=== PATIENT | male | born 1975 | race Caucasian/White ===

== ENCOUNTER 2018-02-17 07:08 | Inpatient (IN) | payer BC, OTHER ==
[2018-02-17] MEDS: morphine 2 MG INJ IV ×2 (08:48→12:42)
[2018-02-17] MEDS: ONDANSETRON 4 MG INJ IV ×2 (08:48→16:16)
[2018-02-17] MEDS: LABETALOL HCL 20MG INJ IV (09:03)
[2018-02-17] MEDS ORDERED: NACL 0.9% 3 ML SYG IV (09:30)
[2018-02-17] MEDS ORDERED: MAGNESIUM HYDROXIDE 30ML CUP PO (09:30)
[2018-02-17] MEDS ORDERED: DOCUSATE SODIUM 100 MG CAP PO (09:30)
[2018-02-17] MEDS ORDERED: ACETAMINOPHEN 325 MG TAB PO (09:30)
[2018-02-17] MEDS: SOD CHLORIDE 0.45% 1,000 ML IV ×2 (09:56→20:20)
[2018-02-17] MEDS ORDERED: GLUCOSE GEL 15 GRAM TUBE BUCCAL (10:00)
[2018-02-17] MEDS ORDERED: DEXTROSE 50% 50 ML SYRINGE IV ×2 (10:00)
[2018-02-17] MEDS ORDERED: GLUCOSE GEL 15 GRAM TUBE PO ×2 (10:00)
[2018-02-17] MEDS ORDERED: GLUCAGON 1 MG INJ IM (10:00)
[2018-02-17] MEDS: HYDROCODONE/APAP (5/325) TAB PO (10:07)
[2018-02-17] MEDS: BENAZEPRIL 40 MG TAB PO (12:03)
[2018-02-17] MEDS: INSULIN GLARGINE [LANTus] (100 UNITS/ML) SYG SC ×2 (12:05→14:42)
[2018-02-17] MEDS: INSULIN ASPART [NOVOLOG] 3 ML PEN SC ×5 (12:08→20:40)
[2018-02-17] MEDS: TRIMETHOBENZAMIDE 300 MG CAP PO (12:40)
[2018-02-17] MEDS: hydrALAzine 20 MG INJ IV (12:42)
[2018-02-17 12:55] LABS: ADD MAN DIFF? NO
[2018-02-17 12:57] LABS: WHITE BLOOD COUNT 12.4 10^3/ul (4.8-10.8)
[2018-02-17 12:57] LABS: BASOPHILS % 0.2 % (0.0-2.0); HEMOGLOBIN 13.5 g/dl (14.0-18.0); LYMPHOCYTES # 1.7 10^3/ul (0.8-2.9); LYMPHOCYTES % 13.3 % (15.0-51.0); MEAN CORPUSCULAR HEMOGLOBIN 31.2 pg (29.0-33.0); MEAN CORPUSCULAR HGB CONC 34.6 g/dl (32.0-37.0); MEAN CORPUSCULAR VOLUME 90.1 fl (82.0-101.0); MEAN PLATELET VOLUME 9.4 fl (7.4-10.4); MONOCYTE # 1.1 10^3/ul (0.3-0.9); MONOCYTES % 9.2 % (0.0-11.0); NEUTROPHIL # 9.5 10^3/ul (1.6-7.5); NEUTROPHILS % 76.9 % (39.0-77.0); NUCLEATED RED BLOOD CELLS% 0.2 /100WBC (0.0-0.0); PLATELET COUNT 285 10^3/UL (140-415); RED BLOOD COUNT 4.33 10^6/ul (4.70-6.10); RED CELL DISTRIBUTION WIDTH 12.5 % (11.5-14.5)
[2018-02-17 13:03] LABS: ALANINE AMINOTRANSFERASE 21 IU/L (13-69); ALBUMIN 3.8 g/dl (3.3-4.9); ALBUMIN/GLOBULIN RATIO 1.08; ALKALINE PHOSPHATASE 90 IU/L (42-121); ANION GAP 21 (8-16); ASPARTATE AMINO TRANSFERASE 33 IU/L (15-46); BILIRUBIN,INDIRECT 0.5 mg/dl (0-1.1); BILIRUBIN,TOTAL 0.5 mg/dl (0.2-1.3); BLOOD UREA NITROGEN 16 mg/dl (7-20); CALCIUM 8.6 mg/dl (8.4-10.2); CARBON DIOXIDE 21 mmol/L (21-31); CHLORIDE 105 mmol/L (97-110); CREATININE 0.62 mg/dl (0.61-1.24); GLUCOSE 267 mg/dl (70-220); POTASSIUM 3.8 mmol/L (3.5-5.1); SODIUM 143 mmol/L (135-144); TOTAL PROTEIN 7.3 g/dl (6.1-8.1)
[2018-02-17 13:07] LABS: ADD UMIC YES; UR ASCORBIC ACID NEGATIVE (NEGATIVE); UR BILIRUBIN (Dip) NEGATIVE (NEGATIVE); UR BLOOD (Dip) 1+ mg/dL (NEGATIVE); UR CLARITY CLEAR (CLEAR); UR COLOR STRAW (YELLOW); UR GLUCOSE (Dip) 3+ mg/dL (NEGATIVE); UR KETONES (Dip) 2+ mg/dL (NEGATIVE); UR LEUKOCYTE ESTERASE (Dip) NEGATIVE Leu/ul (NEGATIVE); UR NITRITE (Dip) NEGATIVE (NEGATIVE); UR RBC 0 /HPF (0-5); UR SPECIFIC GRAVITY (Dip) 1.027 (1.003-1.030); UR TOTAL PROTEIN (Dip) NEGATIVE (NEGATIVE); UR UROBILINOGEN (Dip) NEGATIVE (NEGATIVE); UR WBC 0 /HPF (0-5)
[2018-02-17] MEDS: CEFTRIAXONE 1 GM/50 ML (PMX) 50 ML IVPB (13:51)
[2018-02-17] MEDS: GABAPENTIN 300 MG CAP PO ×2 (13:51→20:20)
[2018-02-17] MEDS ORDERED: HYDROmorphONE 1 MG/ML SYG IV (15:00)
[2018-02-17] MEDS: HYDROmorphONE 0.5 MG/0.5 ML SYG IV ×2 (16:17→20:29)
[2018-02-17 16:41] LABS: HEMOGLOBIN A1C 12.8 % (0-5.9)
[2018-02-17] MEDS ORDERED: ZOLPIDEM 5 MG TAB PO (21:00)
[2018-02-18] MEDS: ACCU-CHEK XX (02:00)
[2018-02-18] MEDS: SOD CHLORIDE 0.45% 1,000 ML IV ×3 (05:55→23:57)
[2018-02-18] MEDS: HYDROmorphONE 0.5 MG/0.5 ML SYG IV ×5 (06:10→23:56)
[2018-02-18 07:03] LABS: ADD MAN DIFF? NO
[2018-02-18 07:08] LABS: BASOPHIL # 0.1 10^3/ul (0.0-0.1); BASOPHILS % 0.6 % (0.0-2.0); EOSINOPHILS # 0.1 10^3/ul (0.0-0.5); EOSINOPHILS % 0.5 % (0.0-7.0); HEMATOCRIT 36.4 % (42.0-52.0); HEMOGLOBIN 12.3 g/dl (14.0-18.0); LYMPHOCYTES # 3.2 10^3/ul (0.8-2.9); MEAN CORPUSCULAR HEMOGLOBIN 30.4 pg (29.0-33.0); MEAN CORPUSCULAR HGB CONC 33.8 g/dl (32.0-37.0); MEAN CORPUSCULAR VOLUME 90.1 fl (82.0-101.0); MEAN PLATELET VOLUME 9.3 fl (7.4-10.4); MONOCYTE # 1.1 10^3/ul (0.3-0.9); MONOCYTES % 11.2 % (0.0-11.0); NEUTROPHIL # 5.1 10^3/ul (1.6-7.5); NEUTROPHILS % 53.5 % (39.0-77.0); PLATELET COUNT 260 10^3/UL (140-415); RED BLOOD COUNT 4.04 10^6/ul (4.70-6.10); RED CELL DISTRIBUTION WIDTH 12.7 % (11.5-14.5)
[2018-02-18 07:08] LABS: WHITE BLOOD COUNT 9.5 10^3/ul (4.8-10.8)
[2018-02-18 07:43] LABS: ANION GAP 12 (8-16); BLOOD UREA NITROGEN 16 mg/dl (7-20); CALCIUM 8.2 mg/dl (8.4-10.2); CARBON DIOXIDE 26 mmol/L (21-31); CHLORIDE 101 mmol/L (97-110); CREATININE 0.62 mg/dl (0.61-1.24); GLUCOSE 235 mg/dl (70-220); MAGNESIUM 2.1 mg/dl (1.7-2.5); PHOSPHORUS 3.1 mg/dl (2.5-4.9); POTASSIUM 3.3 mmol/L (3.5-5.1); SODIUM 136 mmol/L (135-144)
[2018-02-18] MEDS: INSULIN ASPART [NOVOLOG] 3 ML PEN SC ×8 (07:59→21:00)
[2018-02-18] MEDS: GABAPENTIN 300 MG CAP PO ×3 (08:32→21:15)
[2018-02-18] MEDS: BENAZEPRIL 40 MG TAB PO (08:33)
[2018-02-18] MEDS: INSULIN GLARGINE [LANTus] (100 UNITS/ML) SYG SC (10:38)
[2018-02-18] MEDS: CEFTRIAXONE 1 GM/50 ML (PMX) 50 ML IVPB (12:47)
[2018-02-18] MEDS: POTASSIUM CHLORIDE (SR) 20 MEQ TAB PO (15:10)
[2018-02-18] MEDS: ONDANSETRON 4 MG INJ IV (15:14)
[2018-02-18] MEDS: METOCLOPRAMIDE 5 MG TAB PO (17:56)
[2018-02-18] MEDS: METOCLOPRAMIDE 10 MG INJ IV ×2 (19:53→23:56)
[2018-02-18] MEDS: INSULIN DETEMIR [LEVEMIR] (100 UNITS/ML) SYG SC (21:20)
[2018-02-19] MEDS: ACCU-CHEK XX (02:00)
[2018-02-19] MEDS: METOCLOPRAMIDE 10 MG INJ IV ×4 (04:09→23:06)
[2018-02-19] MEDS: HYDROmorphONE 0.5 MG/0.5 ML SYG IV ×4 (04:10→23:06)
[2018-02-19] MEDS: ONDANSETRON 4 MG INJ IV (05:54)
[2018-02-19 06:38] LABS: ADD MAN DIFF? NO
[2018-02-19 06:44] LABS: BASOPHILS % 0.3 % (0.0-2.0); EOSINOPHILS # 0.1 10^3/ul (0.0-0.5); EOSINOPHILS % 1.4 % (0.0-7.0); HEMATOCRIT 37.3 % (42.0-52.0); HEMOGLOBIN 12.4 g/dl (14.0-18.0); LYMPHOCYTES # 3.3 10^3/ul (0.8-2.9); LYMPHOCYTES % 37.9 % (15.0-51.0); MEAN CORPUSCULAR HEMOGLOBIN 30.5 pg (29.0-33.0); MEAN CORPUSCULAR HGB CONC 33.2 g/dl (32.0-37.0); MEAN CORPUSCULAR VOLUME 91.6 fl (82.0-101.0); MEAN PLATELET VOLUME 9.3 fl (7.4-10.4); MONOCYTE # 0.8 10^3/ul (0.3-0.9); MONOCYTES % 9.6 % (0.0-11.0); NEUTROPHIL # 4.4 10^3/ul (1.6-7.5); NEUTROPHILS % 50.6 % (39.0-77.0); PLATELET COUNT 274 10^3/UL (140-415); RED BLOOD COUNT 4.07 10^6/ul (4.70-6.10); RED CELL DISTRIBUTION WIDTH 12.2 % (11.5-14.5)
[2018-02-19 06:44] LABS: WHITE BLOOD COUNT 8.8 10^3/ul (4.8-10.8)
[2018-02-19 07:22] LABS: ANION GAP 10 (8-16); BLOOD UREA NITROGEN 17 mg/dl (7-20); CALCIUM 8.4 mg/dl (8.4-10.2); CARBON DIOXIDE 30 mmol/L (21-31); CHLORIDE 103 mmol/L (97-110); CREATININE 0.63 mg/dl (0.61-1.24); GLUCOSE 196 mg/dl (70-220); POTASSIUM 4.2 mmol/L (3.5-5.1); SODIUM 139 mmol/L (135-144)
[2018-02-19] MEDS: INSULIN ASPART [NOVOLOG] 3 ML PEN SC ×7 (08:00→20:41)
[2018-02-19] MEDS: GABAPENTIN 300 MG CAP PO ×3 (08:45→20:39)
[2018-02-19] MEDS: HYDROCODONE/APAP (5/325) TAB PO (08:45)
[2018-02-19] MEDS: BENAZEPRIL 40 MG TAB PO (08:45)
[2018-02-19] MEDS: METOCLOPRAMIDE 5 MG TAB PO (08:45)
[2018-02-19] MEDS: SOD CHLORIDE 0.45% 1,000 ML IV ×2 (12:16→22:59)
[2018-02-19] MEDS: INSULIN DETEMIR [LEVEMIR] (100 UNITS/ML) SYG SC (20:40)
[2018-02-20] MEDS: ACCU-CHEK XX (02:00)
[2018-02-20] MEDS: HYDROmorphONE 0.5 MG/0.5 ML SYG IV (05:49)
[2018-02-20] MEDS: METOCLOPRAMIDE 10 MG INJ IV ×2 (05:49→12:26)
[2018-02-20] MEDS: INSULIN ASPART [NOVOLOG] 3 ML PEN SC ×4 (08:00→12:26)
[2018-02-20] MEDS: GABAPENTIN 300 MG CAP PO ×2 (08:32→12:26)
[2018-02-20] MEDS: BENAZEPRIL 40 MG TAB PO (08:32)
[2018-02-20] MEDS: SOD CHLORIDE 0.45% 1,000 ML IV (08:35)
[2018-02-20] MEDS: HYDROCODONE/APAP (5/325) TAB PO (10:20)
== END 2018-02-20 16:02 | disposition home or self-care (01) | DRG 872 ==
LOC: MS3 07:08 → PP2 02-18 18:00 → 6WM 18:45 → PP2 02-19 12:00
PROVIDERS: Internal Medicine
DX: A41.9 Sepsis, unspecified organism (principal); N39.0 Urinary tract infection, site not specified; E11.42 Type 2 diabetes mellitus with diabetic polyneuropathy; N31.9 Neuromuscular dysfunction of bladder, unspecified; E11.43 Type 2 diabetes mellitus with diabetic autonomic (poly)neuropathy; K31.84 Gastroparesis; E11.65 Type 2 diabetes mellitus with hyperglycemia; I10 Essential (primary) hypertension; Z91.14 Patient's other noncompliance with medication regimen; Z87.891 Personal history of nicotine dependence; Z79.4 Long term (current) use of insulin
CPT/HCPCS: 76775; 80048; 80053; 81001; 82962; 83036; 83735; 84100; 85025

== ENCOUNTER 2018-07-11 18:52 | Inpatient (IN) | payer BC ==
[2018-07-11] MEDS: SOD CHLORIDE 0.9% 1,000 ML IV (23:15)
[2018-07-11] MEDS: ONDANSETRON 4 MG INJ IV (23:15)
[2018-07-11] MEDS: ACETAMINOPHEN 325 MG TAB PO (23:16)
[2018-07-11] MEDS: morphine 4 MG/ML VIAL IV (23:16)
[2018-07-11 23:31] LABS: ADD MAN DIFF? NO
[2018-07-11 23:33] LABS: BASOPHILS % 0.3 % (0.0-2.0); HEMATOCRIT 47.7 % (42.0-52.0); HEMOGLOBIN 16.7 g/dl (14.0-18.0); LYMPHOCYTES # 1.4 10^3/ul (0.8-2.9); LYMPHOCYTES % 14.9 % (15.0-51.0); MEAN CORPUSCULAR HEMOGLOBIN 30.8 pg (29.0-33.0); MEAN PLATELET VOLUME 9.1 fl (7.4-10.4); MONOCYTE # 0.9 10^3/ul (0.3-0.9); MONOCYTES % 8.8 % (0.0-11.0); NEUTROPHIL # 7.3 10^3/ul (1.6-7.5); NEUTROPHILS % 75.7 % (39.0-77.0); PLATELET COUNT 331 10^3/UL (140-415); RED BLOOD COUNT 5.42 10^6/ul (4.70-6.10); RED CELL DISTRIBUTION WIDTH 12.3 % (11.5-14.5)
[2018-07-11 23:33] LABS: WHITE BLOOD COUNT 9.7 10^3/ul (4.8-10.8)
[2018-07-11 23:36] LABS: ADD UMIC YES; UR ASCORBIC ACID NEGATIVE (NEGATIVE); UR BACTERIA FEW /HPF (NONE SEEN); UR BILIRUBIN (Dip) NEGATIVE (NEGATIVE); UR BLOOD (Dip) 1+ mg/dL (NEGATIVE); UR CLARITY CLEAR (CLEAR); UR COLOR YELLOW (YELLOW); UR GLUCOSE (Dip) 3+ mg/dL (NEGATIVE); UR KETONES (Dip) 2+ mg/dL (NEGATIVE); UR LEUKOCYTE ESTERASE (Dip) NEGATIVE Leu/ul (NEGATIVE); UR NITRITE (Dip) NEGATIVE (NEGATIVE); UR RBC 1 /HPF (0-5); UR SPECIFIC GRAVITY (Dip) 1.035 (1.003-1.030); UR TOTAL PROTEIN (Dip) NEGATIVE (NEGATIVE); UR UROBILINOGEN (Dip) NEGATIVE (NEGATIVE); UR WBC 0 /HPF (0-5)
[2018-07-11 23:47] LABS: INR 0.96; PROTIME 12.9 Sec (11.9-14.9)
[2018-07-11 23:48] LABS: PARTIAL THROMBOPLASTIN TIME 24.1 Sec (23.0-35.0)
[2018-07-11 23:50] LABS: ALANINE AMINOTRANSFERASE 14 IU/L (13-69); ALBUMIN 4.8 g/dl (3.3-4.9); ALBUMIN/GLOBULIN RATIO 1.14; ALKALINE PHOSPHATASE 110 IU/L (42-121); ANION GAP 19 (5-13); ASPARTATE AMINO TRANSFERASE 15 IU/L (15-46); BILIRUBIN,INDIRECT 0.8 mg/dl (0-1.1); BILIRUBIN,TOTAL 0.8 mg/dl (0.2-1.3); BLOOD UREA NITROGEN 25 mg/dl (7-20); CALCIUM 10.2 mg/dl (8.4-10.2); CARBON DIOXIDE 21 mmol/L (21-31); CHLORIDE 95 mmol/L (97-110); CREATININE 0.94 mg/dl (0.61-1.24); Estimated GFR > 60 mL/min (>60); LIPASE 19 U/L (23-300); POTASSIUM 4.1 mmol/L (3.5-5.1); SODIUM 135 mmol/L (135-144)
[2018-07-12 00:14] LABS: GLUCOSE 401 mg/dl (70-220)
[2018-07-12] MEDS: morphine 4 MG/ML VIAL IV (02:10)
[2018-07-12] MEDS: METOCLOPRAMIDE 10 MG INJ IV ×7 (02:10→21:43)
[2018-07-12] MEDS ORDERED: BISACODYL 10 MG SUPP PR (02:30)
[2018-07-12] MEDS ORDERED: morphine 2 MG INJ IV (02:30)
[2018-07-12] MEDS ORDERED: ACETAMINOPHEN 325 MG TAB PO (02:30)
[2018-07-12] MEDS ORDERED: DOCUSATE SODIUM 100 MG CAP PO (02:30)
[2018-07-12] MEDS ORDERED: NACL 0.9% 3 ML SYG IV (02:30)
[2018-07-12] MEDS: INSULIN ASPART [NOVOLOG] 3 ML PEN SC ×6 (02:30→20:15)
[2018-07-12] MEDS: SOD CHLORIDE 0.9% 500 ML IV (03:30)
[2018-07-12] MEDS: INSULIN GLARGINE [LANTus] (100 UNITS/ML) SYG SC ×2 (04:49→09:37)
[2018-07-12 04:52] LABS: ADD MAN DIFF? NO
[2018-07-12 04:54] LABS: WHITE BLOOD COUNT 10.3 10^3/ul (4.8-10.8)
[2018-07-12 04:54] LABS: BASOPHILS % 0.3 % (0.0-2.0); HEMATOCRIT 44.1 % (42.0-52.0); HEMOGLOBIN 15.4 g/dl (14.0-18.0); LYMPHOCYTES # 2.5 10^3/ul (0.8-2.9); LYMPHOCYTES % 23.9 % (15.0-51.0); MEAN CORPUSCULAR HEMOGLOBIN 31.2 pg (29.0-33.0); MEAN CORPUSCULAR HGB CONC 34.9 g/dl (32.0-37.0); MEAN CORPUSCULAR VOLUME 89.5 fl (82.0-101.0); MEAN PLATELET VOLUME 9.1 fl (7.4-10.4); MONOCYTES % 9.8 % (0.0-11.0); NEUTROPHIL # 6.8 10^3/ul (1.6-7.5); NEUTROPHILS % 65.8 % (39.0-77.0); PLATELET COUNT 303 10^3/UL (140-415); RED BLOOD COUNT 4.93 10^6/ul (4.70-6.10); RED CELL DISTRIBUTION WIDTH 12.3 % (11.5-14.5)
[2018-07-12] MEDS: SOD CHLORIDE 0.9% 1,000 ML IV ×4 (04:57→21:46)
[2018-07-12 05:13] LABS: ALANINE AMINOTRANSFERASE 8 IU/L (13-69); ALBUMIN 4.3 g/dl (3.3-4.9); ALKALINE PHOSPHATASE 84 IU/L (42-121); ANION GAP 16 (5-13); ASPARTATE AMINO TRANSFERASE 28 IU/L (15-46); BILIRUBIN,INDIRECT 0.7 mg/dl (0-1.1); BILIRUBIN,TOTAL 0.7 mg/dl (0.2-1.3); BLOOD UREA NITROGEN 27 mg/dl (7-20); CALCIUM 9.4 mg/dl (8.4-10.2); CARBON DIOXIDE 23 mmol/L (21-31); CHLORIDE 98 mmol/L (97-110); CHOL/HDL RATIO 6.4 RATIO; CHOLESTEROL 289 mg/dl (100-200); CREATININE 0.68 mg/dl (0.61-1.24); Estimated GFR > 60 mL/min (>60); GLUCOSE 312 mg/dl (70-220); HDL CHOLESTEROL 45 mg/dl (27-67); LDL CHOLESTEROL,CALCULATED 201 mg/dl; MAGNESIUM 2.3 mg/dl (1.7-2.5); SODIUM 137 mmol/L (135-144); TOTAL PROTEIN 8.2 g/dl (6.1-8.1); TRIGLYCERIDES 214 mg/dl (0-149)
[2018-07-12 05:16] LABS: HEMOGLOBIN A1C 12.8 % (0-5.9)
[2018-07-12] MEDS: morphine SULFATE/PF (2 MG/2 ML) SYG IV ×4 (05:50→21:42)
[2018-07-12] MEDS ORDERED: GLUCOSE GEL 15 GRAM TUBE PO ×2 (07:30)
[2018-07-12] MEDS ORDERED: GLUCAGON 1 MG INJ IM (07:30)
[2018-07-12] MEDS ORDERED: GLUCOSE GEL 15 GRAM TUBE BUCCAL (07:30)
[2018-07-12] MEDS ORDERED: DEXTROSE 50% 50 ML SYRINGE IV ×2 (07:30)
[2018-07-12] MEDS: BENAZEPRIL 40 MG TAB PO (09:35)
[2018-07-12] MEDS: ASPIRIN (EC) 81 MG TAB PO (09:35)
[2018-07-12] MEDS ORDERED: PANTOPRAZOLE 40 MG INJ IV (13:00)
[2018-07-12] MEDS: PANTOPRAZOLE 40 MG INJ IV ×2 (13:05→20:15)
[2018-07-12] MEDS: ERYTHROMYCIN BASE (EC) 500 MG TAB PO ×2 (14:11→21:43)
[2018-07-12] MEDS: ATORVASTATIN 10 MG TAB PO (20:15)
[2018-07-12] MEDS ORDERED: NON-FORMULARY/PATIENT OWN MED (Simvastatin* (Zocor*) 20 MG) PO (21:00)
[2018-07-13] MEDS: INSULIN ASPART [NOVOLOG] 3 ML PEN SC ×5 (01:00→20:46)
[2018-07-13] MEDS: METOCLOPRAMIDE 10 MG INJ IV ×6 (01:51→22:05)
[2018-07-13] MEDS: morphine SULFATE/PF (2 MG/2 ML) SYG IV ×2 (01:51→06:12)
[2018-07-13] MEDS ORDERED: ACCU-CHEK XX (02:00)
[2018-07-13] MEDS: SOD CHLORIDE 0.9% 1,000 ML IV (03:00)
[2018-07-13] MEDS: ERYTHROMYCIN BASE (EC) 500 MG TAB PO ×3 (06:13→22:05)
[2018-07-13] MEDS: ASPIRIN (EC) 81 MG TAB PO (08:23)
[2018-07-13] MEDS: PANTOPRAZOLE 40 MG INJ IV ×2 (08:23→20:40)
[2018-07-13] MEDS: INSULIN GLARGINE [LANTus] (100 UNITS/ML) SYG SC (08:23)
[2018-07-13] MEDS: BENAZEPRIL 40 MG TAB PO (08:24)
[2018-07-13] MEDS: morphine 2 MG INJ IV ×3 (11:37→20:40)
[2018-07-13] MEDS: ATORVASTATIN 10 MG TAB PO (20:40)
[2018-07-14] MEDS: morphine 2 MG INJ IV ×4 (01:09→21:07)
[2018-07-14] MEDS: ACCU-CHEK XX (02:00)
[2018-07-14] MEDS: METOCLOPRAMIDE 10 MG INJ IV ×3 (02:31→10:39)
[2018-07-14] MEDS: ERYTHROMYCIN BASE (EC) 500 MG TAB PO ×3 (05:55→21:02)
[2018-07-14 07:52] LABS: ANION GAP 9 (5-13); BLOOD UREA NITROGEN 10 mg/dl (7-20); CALCIUM 8.5 mg/dl (8.4-10.2); CARBON DIOXIDE 25 mmol/L (21-31); CHLORIDE 104 mmol/L (97-110); CREATININE 0.57 mg/dl (0.61-1.24); Estimated GFR > 60 mL/min (>60); GLUCOSE 104 mg/dl (70-220); POTASSIUM 3.2 mmol/L (3.5-5.1); SODIUM 138 mmol/L (135-144)
[2018-07-14] MEDS: INSULIN ASPART [NOVOLOG] 3 ML PEN SC ×4 (08:00→20:23)
[2018-07-14] MEDS: PANTOPRAZOLE 40 MG INJ IV (08:20)
[2018-07-14] MEDS: ASPIRIN (EC) 81 MG TAB PO (08:20)
[2018-07-14] MEDS: BENAZEPRIL 40 MG TAB PO (08:22)
[2018-07-14] MEDS: INSULIN GLARGINE [LANTus] (100 UNITS/ML) SYG SC (08:23)
[2018-07-14] MEDS: POTASSIUM CHLORIDE (SR) 20 MEQ TAB PO (12:23)
[2018-07-14] MEDS: METOCLOPRAMIDE 10 MG TAB PO ×2 (14:00→21:02)
[2018-07-14] MEDS: POTASSIUM CHLORIDE 100 ML IVPB ×2 (15:00→21:11)
[2018-07-14] MEDS: ATORVASTATIN 10 MG TAB PO (21:02)
[2018-07-15] MEDS: morphine 2 MG INJ IV ×4 (01:46→19:38)
[2018-07-15] MEDS: ACCU-CHEK XX (01:49)
[2018-07-15] MEDS: PANTOPRAZOLE (EC) 40 MG TAB PO (05:44)
[2018-07-15] MEDS: ERYTHROMYCIN BASE (EC) 500 MG TAB PO (05:44)
[2018-07-15] MEDS: METOCLOPRAMIDE 10 MG TAB PO ×3 (05:44→21:03)
[2018-07-15 06:50] LABS: ANION GAP 6 (5-13); BLOOD UREA NITROGEN 10 mg/dl (7-20); CALCIUM 8.7 mg/dl (8.4-10.2); CARBON DIOXIDE 28 mmol/L (21-31); CHLORIDE 103 mmol/L (97-110); CREATININE 0.58 mg/dl (0.61-1.24); Estimated GFR > 60 mL/min (>60); GLUCOSE 171 mg/dl (70-220); POTASSIUM 3.8 mmol/L (3.5-5.1); SODIUM 137 mmol/L (135-144)
[2018-07-15] MEDS: INSULIN ASPART [NOVOLOG] 3 ML PEN SC ×4 (08:20→20:18)
[2018-07-15] MEDS: INSULIN GLARGINE [LANTus] (100 UNITS/ML) SYG SC (08:20)
[2018-07-15] MEDS: ASPIRIN (EC) 81 MG TAB PO (09:10)
[2018-07-15] MEDS: BENAZEPRIL 40 MG TAB PO (09:18)
[2018-07-15] MEDS ORDERED: ERYTHROMYCIN BASE (EC) 500 MG TAB PO (14:00)
[2018-07-15] MEDS: ERYTHROMYCIN BASE (EC) 250 MG TAB PO ×2 (17:35→21:03)
[2018-07-15] MEDS: ATORVASTATIN 10 MG TAB PO (20:16)
[2018-07-16] MEDS: ACCU-CHEK XX (01:49)
[2018-07-16] MEDS: METOCLOPRAMIDE 10 MG TAB PO ×2 (05:22→13:18)
[2018-07-16] MEDS: PANTOPRAZOLE (EC) 40 MG TAB PO (05:22)
[2018-07-16] MEDS: ERYTHROMYCIN BASE (EC) 250 MG TAB PO ×2 (05:22→13:18)
[2018-07-16] MEDS: morphine 2 MG INJ IV (08:09)
[2018-07-16] MEDS: INSULIN GLARGINE [LANTus] (100 UNITS/ML) SYG SC (08:14)
[2018-07-16] MEDS: INSULIN ASPART [NOVOLOG] 3 ML PEN SC ×3 (08:15→17:39)
[2018-07-16] MEDS: ASPIRIN (EC) 81 MG TAB PO (08:18)
[2018-07-16] MEDS: BENAZEPRIL 40 MG TAB PO (08:18)
== END 2018-07-16 18:57 | disposition home or self-care (01) | DRG 74 ==
LOC: E/R 18:52 → PP2 07-12 01:01
PROC: 3E0234Z Introduction of Serum, Toxoid and Vaccine into Muscle, Percutaneous Approach (ICD-10-PCS; principal; 2018-07-12)
DX: E11.43 Type 2 diabetes mellitus with diabetic autonomic (poly)neuropathy (principal); E11.10 Type 2 diabetes mellitus with ketoacidosis without coma; K31.84 Gastroparesis; I10 Essential (primary) hypertension; E78.00 Pure hypercholesterolemia, unspecified; T38.3X6A Underdosing of insulin and oral hypoglycemic [antidiabetic] drugs, initial encounter; E78.5 Hyperlipidemia, unspecified; K76.0 Fatty (change of) liver, not elsewhere classified; Q63.0 Accessory kidney; Z79.4 Long term (current) use of insulin; Z91.120 Patient's intentional underdosing of medication regimen due to financial hardship; Z79.82 Long term (current) use of aspirin; Z23 Encounter for immunization
CPT/HCPCS: 36415; 71045; 74176; 80048; 80053; 80061; 81001; 82962; 83036; 83690; 83735; 84443; 85025; 85610; 85730; 87086; 90686; 96374; 96375; 99285-25; G0378

== ENCOUNTER 2018-08-31 12:30 | Inpatient (IN) | payer BC ==
[2018-08-31 13:44] LABS: ADD MAN DIFF? NO
[2018-08-31] MEDS: morphine 4 MG/ML VIAL IV (13:44)
[2018-08-31] MEDS: METOCLOPRAMIDE 10 MG INJ IV ×2 (13:44→23:34)
[2018-08-31] MEDS: SOD CHLORIDE 0.9% 1,000 ML IV ×2 (13:45→20:30)
[2018-08-31 13:49] LABS: BASOPHIL # 0.1 10^3/ul (0.0-0.1); BASOPHILS % 0.4 % (0.0-2.0); EOSINOPHILS % 0.2 % (0.0-7.0); HEMATOCRIT 51.3 % (42.0-52.0); HEMOGLOBIN 17.9 g/dl (14.0-18.0); LYMPHOCYTES # 2.6 10^3/ul (0.8-2.9); MEAN CORPUSCULAR HEMOGLOBIN 30.2 pg (29.0-33.0); MEAN CORPUSCULAR HGB CONC 34.9 g/dl (32.0-37.0); MEAN CORPUSCULAR VOLUME 86.7 fl (82.0-101.0); MEAN PLATELET VOLUME 9.3 fl (7.4-10.4); MONOCYTE # 1.3 10^3/ul (0.3-0.9); MONOCYTES % 10.6 % (0.0-11.0); NEUTROPHIL # 7.8 10^3/ul (1.6-7.5); NEUTROPHILS % 66.4 % (39.0-77.0); PLATELET COUNT 438 10^3/UL (140-415); RED BLOOD COUNT 5.92 10^6/ul (4.70-6.10); RED CELL DISTRIBUTION WIDTH 11.9 % (11.5-14.5)
[2018-08-31 13:49] LABS: WHITE BLOOD COUNT 11.8 10^3/ul (4.8-10.8)
[2018-08-31 14:09] LABS: ALANINE AMINOTRANSFERASE 7 IU/L (13-69); ALBUMIN/GLOBULIN RATIO 1.15; ALKALINE PHOSPHATASE 115 IU/L (42-121); ANION GAP 21 (5-13); ASPARTATE AMINO TRANSFERASE 18 IU/L (15-46); BILIRUBIN,TOTAL 0.7 mg/dl (0.2-1.3); BLOOD UREA NITROGEN 37 mg/dl (7-20); CALCIUM 10.2 mg/dl (8.4-10.2); CARBON DIOXIDE 20 mmol/L (21-31); CHLORIDE 97 mmol/L (97-110); CREATININE 1.06 mg/dl (0.61-1.24); Estimated GFR > 60 mL/min (>60); GLUCOSE 260 mg/dl (70-220); INR 0.91; LIPASE 179 U/L (23-300); PROTIME 12.4 Sec (11.9-14.9); SODIUM 138 mmol/L (135-144)
[2018-08-31 14:14] LABS: ALBUMIN 5.1 g/dl (3.3-4.9); BILIRUBIN,INDIRECT 0.7 mg/dl (0-1.1); TOTAL PROTEIN 9.5 g/dl (6.1-8.1)
[2018-08-31 14:21] LABS: TROPONIN-I < 0.012 ng/ml (0.000-0.120)
[2018-08-31] MEDS: ERYTHROMYCIN BASE (DR) 250 MG CAP PO (16:37)
[2018-08-31] MEDS: HYDROmorphONE 0.5 MG/0.5 ML SYG IV (16:37)
[2018-08-31] MEDS ORDERED: GLUCOSE GEL 15 GRAM TUBE BUCCAL (17:00)
[2018-08-31] MEDS ORDERED: GLUCOSE GEL 15 GRAM TUBE PO ×2 (17:00)
[2018-08-31] MEDS ORDERED: GLUCAGON 1 MG INJ IM (17:00)
[2018-08-31] MEDS ORDERED: DEXTROSE 50% 50 ML SYRINGE IV ×2 (17:00)
[2018-08-31] MEDS ORDERED: NACL 0.9% 3 ML SYG IV (17:00)
[2018-08-31] MEDS ORDERED: ACETAMINOPHEN 325 MG TAB PO (17:00)
[2018-08-31] MEDS: INSULIN ASPART [NOVOLOG] 3 ML PEN SC ×2 (18:00→20:34)
[2018-08-31] MEDS: ONDANSETRON 4 MG INJ IV ×2 (19:41→20:15)
[2018-08-31] MEDS: morphine 2 MG INJ IV ×2 (19:59→23:34)
[2018-08-31] MEDS: PANTOPRAZOLE 40 MG INJ IV (20:29)
[2018-08-31 20:49] LABS: TROPONIN-I < 0.012 ng/ml (0.000-0.120)
[2018-08-31] MEDS: HEPARIN 5,000 UNIT/1 ML VIAL SC (22:18)
[2018-08-31] MEDS: INSULIN GLARGINE [LANTus] (100 UNITS/ML) SYG SC (22:18)
[2018-09-01 01:13] LABS: TROPONIN-I < 0.012 ng/ml (0.000-0.120)
[2018-09-01] MEDS: ACCU-CHEK XX (01:35)
[2018-09-01] MEDS: SOD CHLORIDE 0.9% 1,000 ML IV ×3 (02:50→17:42)
[2018-09-01] MEDS: METOPROLOL 25 MG TAB PO (02:57)
[2018-09-01] MEDS: morphine 2 MG INJ IV ×5 (04:13→21:58)
[2018-09-01] MEDS: METOCLOPRAMIDE 10 MG INJ IV ×4 (06:00→23:51)
[2018-09-01] MEDS: PANTOPRAZOLE 40 MG INJ IV (06:00)
[2018-09-01] MEDS: HEPARIN 5,000 UNIT/1 ML VIAL SC ×3 (06:06→21:10)
[2018-09-01 06:11] LABS: ADD MAN DIFF? NO
[2018-09-01 06:21] LABS: BASOPHIL # 0.1 10^3/ul (0.0-0.1); BASOPHILS % 0.6 % (0.0-2.0); EOSINOPHILS % 0.1 % (0.0-7.0); HEMATOCRIT 42.8 % (42.0-52.0); HEMOGLOBIN 14.9 g/dl (14.0-18.0); LYMPHOCYTES # 2.8 10^3/ul (0.8-2.9); MEAN CORPUSCULAR HEMOGLOBIN 30.7 pg (29.0-33.0); MEAN CORPUSCULAR HGB CONC 34.8 g/dl (32.0-37.0); MEAN CORPUSCULAR VOLUME 88.1 fl (82.0-101.0); MEAN PLATELET VOLUME 9.3 fl (7.4-10.4); MONOCYTE # 1.1 10^3/ul (0.3-0.9); MONOCYTES % 13.6 % (0.0-11.0); NEUTROPHIL # 4.2 10^3/ul (1.6-7.5); NEUTROPHILS % 51.3 % (39.0-77.0); PLATELET COUNT 330 10^3/UL (140-415); RED BLOOD COUNT 4.86 10^6/ul (4.70-6.10)
[2018-09-01 06:21] LABS: WHITE BLOOD COUNT 8.2 10^3/ul (4.8-10.8)
[2018-09-01 06:41] LABS: ALANINE AMINOTRANSFERASE 13 IU/L (13-69); ALBUMIN 3.8 g/dl (3.3-4.9); ALBUMIN/GLOBULIN RATIO 1.11; ALKALINE PHOSPHATASE 79 IU/L (42-121); ANION GAP 12 (5-13); ASPARTATE AMINO TRANSFERASE 12 IU/L (15-46); BILIRUBIN,INDIRECT 0.6 mg/dl (0-1.1); BILIRUBIN,TOTAL 0.6 mg/dl (0.2-1.3); BLOOD UREA NITROGEN 36 mg/dl (7-20); CALCIUM 8.8 mg/dl (8.4-10.2); CARBON DIOXIDE 27 mmol/L (21-31); CHLORIDE 100 mmol/L (97-110); CHOL/HDL RATIO 6.1 RATIO; CHOLESTEROL 223 mg/dl (100-200); CREATININE 0.79 mg/dl (0.61-1.24); Estimated GFR > 60 mL/min (>60); GLUCOSE 119 mg/dl (70-220); HDL CHOLESTEROL 36 mg/dl (27-67); LDL CHOLESTEROL,CALCULATED 150 mg/dl; MAGNESIUM 2.3 mg/dl (1.7-2.5); POTASSIUM 3.5 mmol/L (3.5-5.1); SODIUM 139 mmol/L (135-144); TOTAL PROTEIN 7.2 g/dl (6.1-8.1); TRIGLYCERIDES 183 mg/dl (0-149)
[2018-09-01 06:48] LABS: HEMOGLOBIN A1C 11.7 % (0-5.9)
[2018-09-01] MEDS: INSULIN ASPART [NOVOLOG] 3 ML PEN SC ×4 (08:00→21:04)
[2018-09-01] MEDS: ERYTHROMYCIN BASE (DR) 250 MG CAP PO ×2 (14:11→20:55)
[2018-09-01] MEDS: INSULIN GLARGINE [LANTus] (100 UNITS/ML) SYG SC (21:03)
[2018-09-02] MEDS: ACCU-CHEK XX (02:00)
[2018-09-02] MEDS: morphine 2 MG INJ IV ×2 (02:24→08:55)
[2018-09-02] MEDS: ONDANSETRON 4 MG INJ IV ×2 (02:27→08:41)
[2018-09-02] MEDS: SOD CHLORIDE 0.9% 1,000 ML IV (02:43)
[2018-09-02] MEDS: METOCLOPRAMIDE 10 MG INJ IV ×4 (05:25→23:30)
[2018-09-02] MEDS: PANTOPRAZOLE 40 MG INJ IV (05:25)
[2018-09-02] MEDS: HEPARIN 5,000 UNIT/1 ML VIAL SC ×3 (05:29→21:35)
[2018-09-02 06:23] LABS: ADD MAN DIFF? NO
[2018-09-02 06:33] LABS: BASOPHILS % 0.7 % (0.0-2.0); EOSINOPHILS % 0.7 % (0.0-7.0); HEMATOCRIT 35.8 % (42.0-52.0); HEMOGLOBIN 12.3 g/dl (14.0-18.0); LYMPHOCYTES % 49.7 % (15.0-51.0); MEAN CORPUSCULAR HEMOGLOBIN 30.9 pg (29.0-33.0); MEAN CORPUSCULAR HGB CONC 34.4 g/dl (32.0-37.0); MEAN CORPUSCULAR VOLUME 89.9 fl (82.0-101.0); MEAN PLATELET VOLUME 9.4 fl (7.4-10.4); MONOCYTE # 0.7 10^3/ul (0.3-0.9); MONOCYTES % 11.8 % (0.0-11.0); NEUTROPHIL # 2.2 10^3/ul (1.6-7.5); NEUTROPHILS % 36.8 % (39.0-77.0); PLATELET COUNT 248 10^3/UL (140-415); RED BLOOD COUNT 3.98 10^6/ul (4.70-6.10)
[2018-09-02 06:33] LABS: WHITE BLOOD COUNT 5.9 10^3/ul (4.8-10.8)
[2018-09-02 07:20] LABS: ANION GAP 7 (5-13); BLOOD UREA NITROGEN 16 mg/dl (7-20); CARBON DIOXIDE 25 mmol/L (21-31); CHLORIDE 107 mmol/L (97-110); CREATININE 0.57 mg/dl (0.61-1.24); Estimated GFR > 60 mL/min (>60); GLUCOSE 147 mg/dl (70-220); MAGNESIUM 2.3 mg/dl (1.7-2.5); PHOSPHORUS 3.4 mg/dl (2.5-4.9); POTASSIUM 3.5 mmol/L (3.5-5.1); SODIUM 139 mmol/L (135-144)
[2018-09-02] MEDS: ERYTHROMYCIN BASE (DR) 250 MG CAP PO ×2 (08:36→20:18)
[2018-09-02] MEDS: INSULIN ASPART [NOVOLOG] 3 ML PEN SC ×4 (08:40→20:18)
[2018-09-02] MEDS: SOD CHLORIDE 0.45% 1,000 ML IV (10:12)
[2018-09-02] MEDS: SUCRALFATE (100 MG/ML) 10ML CUP PO ×2 (13:01→17:55)
[2018-09-02] MEDS: HYDROCODONE/APAP (5/325) TAB PO (18:03)
[2018-09-02] MEDS: INSULIN GLARGINE [LANTus] (100 UNITS/ML) SYG SC (20:17)
[2018-09-02] MEDS: SUCRALFATE 1 GM TAB PO (20:31)
[2018-09-03] MEDS: ACCU-CHEK XX (02:31)
[2018-09-03 05:15] LABS: ADD MAN DIFF? NO
[2018-09-03 05:32] LABS: BASOPHILS % 0.5 % (0.0-2.0); EOSINOPHILS # 0.1 10^3/ul (0.0-0.5); EOSINOPHILS % 1.4 % (0.0-7.0); HEMATOCRIT 35.8 % (42.0-52.0); HEMOGLOBIN 12.4 g/dl (14.0-18.0); LYMPHOCYTES # 3.3 10^3/ul (0.8-2.9); LYMPHOCYTES % 52.2 % (15.0-51.0); MEAN CORPUSCULAR HEMOGLOBIN 30.8 pg (29.0-33.0); MEAN CORPUSCULAR HGB CONC 34.6 g/dl (32.0-37.0); MEAN CORPUSCULAR VOLUME 88.8 fl (82.0-101.0); MEAN PLATELET VOLUME 9.4 fl (7.4-10.4); MONOCYTE # 0.7 10^3/ul (0.3-0.9); MONOCYTES % 10.6 % (0.0-11.0); NEUTROPHIL # 2.2 10^3/ul (1.6-7.5); NEUTROPHILS % 35.1 % (39.0-77.0); PLATELET COUNT 247 10^3/UL (140-415); RED BLOOD COUNT 4.03 10^6/ul (4.70-6.10); RED CELL DISTRIBUTION WIDTH 11.7 % (11.5-14.5)
[2018-09-03 05:32] LABS: WHITE BLOOD COUNT 6.3 10^3/ul (4.8-10.8)
[2018-09-03] MEDS: SOD CHLORIDE 0.45% 1,000 ML IV ×2 (05:32→13:21)
[2018-09-03] MEDS: PANTOPRAZOLE 40 MG INJ IV (05:32)
[2018-09-03] MEDS: METOCLOPRAMIDE 10 MG INJ IV ×3 (05:32→17:59)
[2018-09-03] MEDS: HEPARIN 5,000 UNIT/1 ML VIAL SC ×3 (05:36→22:36)
[2018-09-03 05:51] LABS: ANION GAP 6 (5-13); BLOOD UREA NITROGEN 6 mg/dl (7-20); CALCIUM 8.5 mg/dl (8.4-10.2); CARBON DIOXIDE 30 mmol/L (21-31); CHLORIDE 103 mmol/L (97-110); CREATININE 0.61 mg/dl (0.61-1.24); Estimated GFR > 60 mL/min (>60); GLUCOSE 99 mg/dl (70-220); MAGNESIUM 2.2 mg/dl (1.7-2.5); PHOSPHORUS 3.6 mg/dl (2.5-4.9); POTASSIUM 3.6 mmol/L (3.5-5.1); SODIUM 139 mmol/L (135-144)
[2018-09-03] MEDS: INSULIN ASPART [NOVOLOG] 3 ML PEN SC ×4 (07:51→22:35)
[2018-09-03] MEDS: SUCRALFATE 1 GM TAB PO ×4 (07:52→22:30)
[2018-09-03] MEDS: ERYTHROMYCIN BASE (DR) 250 MG CAP PO ×2 (07:52→22:30)
[2018-09-03] MEDS: POTASSIUM CHLORIDE (SR) 20 MEQ TAB PO (09:36)
[2018-09-03] MEDS: ATORVASTATIN 10 MG TAB PO (22:30)
[2018-09-03] MEDS: INSULIN GLARGINE [LANTus] (100 UNITS/ML) SYG SC (22:36)
[2018-09-04] MEDS: METOCLOPRAMIDE 10 MG INJ IV ×3 (00:28→12:52)
[2018-09-04] MEDS: ACCU-CHEK XX (01:54)
[2018-09-04] MEDS: SOD CHLORIDE 0.45% 1,000 ML IV ×2 (01:54→10:02)
[2018-09-04] MEDS: HEPARIN 5,000 UNIT/1 ML VIAL SC ×2 (05:48→13:10)
[2018-09-04] MEDS: PANTOPRAZOLE (EC) 40 MG TAB PO (05:49)
[2018-09-04] MEDS: INSULIN ASPART [NOVOLOG] 3 ML PEN SC ×2 (08:00→13:10)
[2018-09-04] MEDS: SUCRALFATE 1 GM TAB PO ×2 (08:05→12:52)
[2018-09-04] MEDS: BENAZEPRIL 40 MG TAB PO (08:05)
[2018-09-04] MEDS: ERYTHROMYCIN BASE (DR) 250 MG CAP PO (08:05)
[2018-09-04] MEDS: hydrALAzine 20 MG INJ IV (14:57)
== END 2018-09-04 16:10 | disposition home or self-care (01) | DRG 74 ==
LOC: E/R 12:30 → 2NE 09-03 23:00
DX: E11.43 Type 2 diabetes mellitus with diabetic autonomic (poly)neuropathy (principal); K31.84 Gastroparesis; I10 Essential (primary) hypertension; E78.5 Hyperlipidemia, unspecified; Z79.4 Long term (current) use of insulin
CPT/HCPCS: 36415; 74018; 74176; 80048; 80053; 80061; 82962; 83036; 83690; 83735; 84100; 84484; 85025; 85610; 93005; 96374; 96375; 99285-25